=== PATIENT | female | born 2000 | race Caucasian/White ===

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

== ENCOUNTER → 2021-02-19 | Outpatient (CLI) | payer OTHER ==
[~2021-02-19] MED LIST: D-101000 PO; FLUO10CA16; HYDR-643; NORE1TAB73; OMEP20TA17
== END ==
LOC: M LABSMTC 09:51
PROVIDERS: ATTEND Anesthesiology
DX: Z01.812 Encounter for preprocedural laboratory examination (principal); Z20.822 Contact with and (suspected) exposure to COVID-19

== ENCOUNTER 2021-02-24 06:18 | Day surgery (SDC) | payer OTHER ==
[~2021-02-24] VITALS: Ht 160 cm; Wt 60.3 kg
[~2021-02-24 06:18] MED LIST changes: +LIDOCAINE 1% MDV 20ML VIAL SQ PRN; +LR 1,000 ML IV ONE; +ceFAZolin SOD 2 GM in IV 1 EA IV ONE
[2021-02-24] MEDS ORDERED: ceFAZolin 2 GM/D5W 50 ML IV BAG (J0690 PER 500MG) As Ordered ONE (06:39)
[2021-02-24] MEDS ORDERED: MIDAZOLAM INJ 2MG/2ML VIAL (J2250 PER 1MG) As Ordered ONE (06:53)
[2021-02-24] MEDS ORDERED: fentaNYL 100 MCG/2 ML INJECTION (J3010) As Ordered ONE (06:54)
[2021-02-24] MEDS ORDERED: propofoL 200 MG/20 ML VIAL As Ordered ONE (06:55)
[2021-02-24] MEDS ORDERED: LIDOCAINE 2% 100MG/5ML SDV (FOR ANES.) As Ordered ONE (06:56)
[2021-02-24] MEDS ORDERED: CLINDAMYCIN 600 MG in IV 1 EA IV ONE (07:15)
[2021-02-24] MEDS ORDERED: LIDOCAINE 1% SDV 30ML VIAL As Ordered ONE (07:15)
[2021-02-24] MEDS ORDERED: ePHEDrine SULFATE 25 MG/5 ML(5MG/ML) SYRINGE As Ordered ONE (07:54)
[2021-02-24] MEDS ORDERED: ONDANSETRON 4MG/2ML VIAL As Ordered ONE (07:55)
[2021-02-24] MEDS ORDERED: dexameTHASONE 4 MG/ML 1ML VIAL (J1100 PER 1MG) As Ordered ONE (07:55)
[2021-02-24] MEDS ORDERED: KETOROLAC 60MG 2ML VIAL As Ordered ONE (08:12)
--- NOTE | 2021-02-24 08:36 | ROOPDOC ---
[facility] Report Of Operation Report of Operation DATE OF PROCEDURE: 02/24/21 PREPROCEDURE DIAGNOSES: Right wrist ganglion cyst. POSTPROCEDURE DIAGNOSES: Same. PROCEDURE: Right wrist ganglion cyst excision. SURGEON: Dr. Jerald Tiwari MD SENIOR CONTROLLER: None, ANESTHESIA: Dr. Roldan. 2 mL 1% lidocaine and LMA anesthetic. ESTIMATED BLOOD LOSS: Approximately 3 mL. COMPLICATIONS: None. REMARKS: None. PROCEDURE NOTE: This 20-year-old female presented with a symptomatic right wrist dorsal ganglion cyst. She wishes to go ahead with excision. I reminded her of the pros and cons risks and benefits of going ahead with surgery. She wished to proceed. I marked the right upper extremity. She had no further questions.. DESCRIPTION OF PROCEDURE: The patient was brought to the operating room theater. They were placed supine on the operating room table. General anesthesia was induced. Clindamycin IV 600 mg was administered. Prior penicillin allergy. Arm table was used to the patient's right side. All bony prominences appropriately padded. Sequential devices placed on the legs. Tourniquet applied to the right upper extremity and appropriately padded. Size 18 inches. Bed turned to 90. Right upper extremity prepped with chlorhexidine preparatory solution. This was allowed to thoroughly dry over 3 minutes prior to draping. Preoperative timeout was performed to confirm the site patient and surgery. Began by elevating the limb and inflating the tourniquet to 250 mmHg. I planned my dorsal longitudinal incision over the site of the ganglion cyst. The incision was approximately 1 inch long. I used 2 mL 1% lidocaine in the subcutaneous tissues directly over the ganglion cyst site. Made the incision through skin and subcutaneous tissue to meticulous hemostasis. I identified the ganglion cyst. I used gentle blunt dissection around this. I achieved meticulous hemostasis. I identified the stalk. I protected the dorsal ligaments of the wrist. I excised the ganglion cyst in one section taking the stalk protecting the ligaments. Tourniquet was let down and wounds thoroughly irrigated. Cyst was sent to pathology. Subcutaneous tissues closed with interrupted 3-0 Vicryl sutures and skin with 3-0 Monocryl. Skin cleaned with wet and dry dressing. Steri-Strips applied. Adaptic 4 x 8 gauze and Daquan wrap was used to dress the wound. Patient was woken up from their anesthetic transferred off the operating room table and taken to postanesthetic care unit in stable condition. All sponge needle and instrument counts were correct. No complications. I attempted to contact the patient's father after the case, there was no answer to the phone number. Plan for the patient is to be discharged home when they are comfortable. Follow- up in the office in 2 weeks' time. Keep the incision clean and dry and change the dressing postoperative day 1, 2 and as needed. Start immediate range of motion of the hand wrist and elbow but avoid heavy lifting or gripping for the first 6 weeks after surgery. Prescription has been sent in electronically to the pharmacy of choice. Postoperative wound instructions were given. It was recommended to keep the wound clean and dry. Dressing changes as needed. It was reinforced with the patient that they should call us or be seen immediately for redness, drainage, or fever. Risk factors for harms from taking opioid medications discussed and assessed including but not limited to personal or family history of substance use disorder, anxiety or depression, , age 65 or older, COPD or other underlying respiratory conditions, and renal or hepatic insufficiency. Discussed with patient concerns and determined any harms they may experience or be currently experiencing such as nausea or constipation, feeling sedated or confused, breathing interruptions during sleep, or taking or craving more opioids than prescribed or difficulty controlling use (addiction). Discussed early warning signs of overdose including confusion, sedation, slurred speech, abnormal gait. JERALD TIWARI MD February 24, 2021 08:36
[2021-02-24] MEDS ORDERED: fentaNYL 100 MCG/2 ML INJECTION (J3010) IV PRN (08:40)
[2021-02-24] MEDS ORDERED: MORPHINE 2 MG/ML 1ML VIAL (J2270) IV PRN (08:40)
[2021-02-24] MEDS ORDERED: LR 1,000 ML IV SCH ×2 (08:40)
[2021-02-24] MEDS ORDERED: ONDANSETRON 4MG/2ML VIAL IV PRN ×2 (08:40→08:45)
[2021-02-24] MEDS ORDERED: PERCOCET 5MG/325MG TAB PO PRN ×2 (08:40→08:45)
[2021-02-24] MEDS ORDERED: ACETAMINOPHEN TAB 650MG DOSE (2X325MG) PO PRN (08:40)
[2021-02-24 09:00] VITALS: BP 151/103
== END 2021-02-24 09:34 | disposition home or self-care (01) ==
LOC: M SDC 06:18
PROVIDERS: ATTEND Orthopaedic Surgery Sports Medicine
DX: M67.431 Ganglion, right wrist (principal); R12 Heartburn; R03.0 Elevated blood-pressure reading, without diagnosis of hypertension; F41.9 Anxiety disorder, unspecified; F32.9 Major depressive disorder, single episode, unspecified; G43.909 Migraine, unspecified, not intractable, without status migrainosus; F17.220 Nicotine dependence, chewing tobacco, uncomplicated; Z88.0 Allergy status to penicillin; Z79.899 Other long term (current) drug therapy; Z79.3 Long term (current) use of hormonal contraceptives
CPT/HCPCS: 25111; 81025; 88304; J1100; J1885; J2250; J2405; J3010

== ENCOUNTER → 2021-07-07 | Outpatient (CLI) | payer OTHER ==
[~2021-07-07] MED LIST changes: -LIDOCAINE 1% MDV 20ML VIAL SQ PRN; -LR 1,000 ML IV ONE; -ceFAZolin SOD 2 GM in IV 1 EA IV ONE
[2021-07-07 16:12] LABS: BASO % 0.2 % (0.0-1.0); EOS # 0.1 10^3/uL (0.0-0.5); EOS % 0.8 % (0.0-3.0); HEMATOCRIT 40.9 % (36.0-47.0); HEMOGLOBIN 13.3 g/dl (12.0-15.5); LYMPH # 1.8 10^3/uL (1.5-5.0); LYMPH % 21.4 % (24.0-44.0); MEAN CORPUSCULAR HEMOGLOBIN 27.8 pg (27.0-33.0); MEAN CORPUSCULAR HGB CONC 32.5 g/dl (32.0-36.5); MEAN CORPUSCULAR VOLUME 85.4 fl (80.0-96.0); MONO # 0.5 10^3/uL (0.0-0.8); MONO % 6.1 % (2.0-8.0); NEUTROPHILS % 71.4 % (36.0-66.0); PLATELET COUNT, AUTOMATED 324 10^3/uL (150-450); RED BLOOD COUNT 4.79 10^6/uL (4.00-5.40); WHITE BLOOD COUNT 8.5 10^3/uL (4.0-10.0)
[2021-07-07 17:51] LABS: ALBUMIN 3.6 GM/DL (3.2-5.2); ALT/SGPT 13 U/L (12-78); BILIRUBIN,TOTAL 0.7 MG/DL (0.2-1.0); BLOOD UREA NITROGEN 9 MG/DL (7-18); CALCIUM LEVEL 9.3 MG/DL (8.5-10.1); CARBON DIOXIDE LEVEL 25 MEQ/L (21-32); CHLORIDE LEVEL 106 MEQ/L (98-107); CREATININE FOR GFR 0.78 MG/DL (0.55-1.30); FERRITIN 9 NG/ML (8-252); GLUCOSE, FASTING 81 MG/DL (70-100); IRON (FE) 120 UG/DL (50-170); PERCENT SATURATION 19.8 % (13.2-45.0); POTASSIUM SERUM 4.1 MEQ/L (3.5-5.1); SODIUM LEVEL 138 MEQ/L (136-145); TOTAL IRON BINDING CAPACITY 607 UG/DL (250-450); TOTAL PROTEIN 7.7 GM/DL (6.4-8.2)
[2021-07-07 17:59] LABS: TOTAL 25(OH) VITAMIN D 38.7 NG/ML (30.0-100.0)
== END ==
LOC: M WUC 11:44
PROVIDERS: ATTEND Physician Assistant
DX: D50.9 Iron deficiency anemia, unspecified (principal); F41.1 Generalized anxiety disorder; E55.9 Vitamin D deficiency, unspecified

== ENCOUNTER → 2021-08-24 | Outpatient (REF) | payer OTHER ==
[~2021-08-24] MED LIST changes: -FLUO10CA16; +FLUO10CA18
== END ==
LOC: M LAB REF 13:55
PROVIDERS: ATTEND Physician Assistant
DX: D28.0 Benign neoplasm of vulva (principal)

== ENCOUNTER → 2021-08-25 | Outpatient (REF) | payer OTHER ==
[~2021-08-25] MED LIST changes: +FLUO10CA16; -FLUO10CA18
[2021-08-25 16:23] LABS: APPEARANCE, URINE TURBID (CLEAR); BACTERIA, URINE AUTO NEGATIVE (NEGATIVE); BILIRUBIN, URINE AUTO NEGATIVE (NEGATIVE); BLOOD, URINE BLOOD 1+ (NEGATIVE); COLOR, URINE AMBER (YELLOW); GLUCOSE, URINE (UA) AUTO NEGATIVE (NEGATIVE); KETONE, URINE AUTO NEGATIVE (NEGATIVE); LEUKOCYTE ESTERASE, URINE AUTO 3+ (NEGATIVE); MUCUS, URINE LARGE (NEGATIVE); NITRITE, URINE AUTO NEGATIVE (NEGATIVE); PROTEIN, URINE AUTO 1+ mg/dL (NEGATIVE); RBC, URINE AUTO 5 /HPF (0-3); SPECIFIC GRAVITY URINE AUTO 1.028 (1.002-1.035); SQUAMOUS EPITHELIAL CELL UR AU 55 /HPF (0-6); UROBILINOGEN, URINE AUTO 0.2 mg/dL (0.0-2.0); WBC, URINE AUTO 86 /HPF (0-3)
[2021-08-25 16:26] LABS: BASO % 0.3 % (0.0-1.0); EOS % 0.4 % (0.0-3.0); HEMATOCRIT 38.4 % (36.0-47.0); HEMOGLOBIN 12.7 g/dl (12.0-15.5); LYMPH # 2.2 10^3/uL (1.5-5.0); LYMPH % 28.2 % (24.0-44.0); MEAN CORPUSCULAR HEMOGLOBIN 27.4 pg (27.0-33.0); MEAN CORPUSCULAR HGB CONC 33.1 g/dl (32.0-36.5); MEAN CORPUSCULAR VOLUME 82.9 fl (80.0-96.0); MONO # 0.5 10^3/uL (0.0-0.8); MONO % 5.9 % (2.0-8.0); NEUTROPHILS # 5.1 10^3/uL (1.5-8.5); NEUTROPHILS % 65.1 % (36.0-66.0); PLATELET COUNT, AUTOMATED 316 10^3/uL (150-450); RED BLOOD COUNT 4.63 10^6/uL (4.00-5.40); WHITE BLOOD COUNT 7.9 10^3/uL (4.0-10.0)
[2021-08-25 17:04] LABS: ALBUMIN 3.7 GM/DL (3.2-5.2); ALT/SGPT 15 U/L (12-78); BILIRUBIN,TOTAL 0.6 MG/DL (0.2-1.0); BLOOD UREA NITROGEN 12 MG/DL (7-18); CALCIUM LEVEL 8.6 MG/DL (8.5-10.1); CARBON DIOXIDE LEVEL 23 MEQ/L (21-32); CHLORIDE LEVEL 106 MEQ/L (98-107); CREATININE FOR GFR 0.78 MG/DL (0.55-1.30); FERRITIN 27 NG/ML (8-252); FREE T4 1.06 NG/DL (0.78-1.33); GLUCOSE, FASTING 88 MG/DL (70-100); IRON (FE) 105 UG/DL (50-170); PERCENT SATURATION 18.8 % (13.2-45.0); POTASSIUM SERUM 3.9 MEQ/L (3.5-5.1); SODIUM LEVEL 138 MEQ/L (136-145); TOTAL IRON BINDING CAPACITY 558 UG/DL (250-450); TOTAL PROTEIN 7.4 GM/DL (6.4-8.2); VITAMIN B12 LEVEL 277 PG/ML
[2021-08-25 17:06] LABS: HCG, SERUM QUALITATIVE NEGATIVE (NEGATIVE)
[2021-08-25 17:43] LABS: HEPATITIS C VIRUS ABY INDEX 0.1 INDEX (<0.8)
[2021-08-25 17:44] LABS: HIV 1&2 SCREEN CENTAUR NEGATIVE (NEGATIVE)
== END ==
LOC: M SFHCCAPE 07:34
PROVIDERS: ATTEND Physician Assistant
DX: F41.1 Generalized anxiety disorder (principal); D50.9 Iron deficiency anemia, unspecified; E55.9 Vitamin D deficiency, unspecified; R53.82 Chronic fatigue, unspecified

== ENCOUNTER → 2021-09-08 | Outpatient (REF) | payer OTHER ==
[~2021-09-08] MED LIST changes: -FLUO10CA16; +FLUO10CA18
[2021-09-09 16:17] LABS: APPEARANCE, URINE HAZY (CLEAR); BACTERIA, URINE AUTO NEGATIVE (NEGATIVE); BILIRUBIN, URINE AUTO NEGATIVE (NEGATIVE); BLOOD, URINE BLOOD 3+ (NEGATIVE); CALCIUM OXALATE CRYSTALS SMALL; COLOR, URINE YELLOW (YELLOW); GLUCOSE, URINE (UA) AUTO NEGATIVE (NEGATIVE); KETONE, URINE AUTO NEGATIVE (NEGATIVE); LEUKOCYTE ESTERASE, URINE AUTO NEGATIVE (NEGATIVE); MUCUS, URINE SMALL (NEGATIVE); NITRITE, URINE AUTO NEGATIVE (NEGATIVE); PROTEIN, URINE AUTO 1+ mg/dL (NEGATIVE); RBC, URINE AUTO 3 /HPF (0-3); SPECIFIC GRAVITY URINE AUTO 1.024 (1.002-1.035); SQUAMOUS EPITHELIAL CELL UR AU 3 /HPF (0-6); UROBILINOGEN, URINE AUTO 0.2 mg/dL (0.0-2.0); WBC, URINE AUTO 8 /HPF (0-3)
== END ==
LOC: M SFHCCAPE 14:48
PROVIDERS: ATTEND Physician Assistant
DX: R82.90 Unspecified abnormal findings in urine (principal)

== ENCOUNTER → 2021-10-06 | Outpatient (REF) | payer OTHER ==
[~2021-10-06] MED LIST changes: +FLUO10CA16; -FLUO10CA18
== END ==
LOC: M SFHCCAPE 14:11
PROVIDERS: ATTEND Physician Assistant
DX: J01.00 Acute maxillary sinusitis, unspecified (principal)

== ENCOUNTER → 2022-01-11 | Outpatient (REF) | payer OTHER ==
[~2022-01-11] MED LIST changes: -FLUO10CA16; +FLUO10CA18
== END ==
LOC: M SFHCCAPE 08:45
PROVIDERS: ATTEND Physician Assistant
DX: L08.9 Local infection of the skin and subcutaneous tissue, unspecified (principal)

== ENCOUNTER → 2022-01-11 | Outpatient (REF) | payer OTHER | LOC: M SFHCCAPE 15:50 | PROVIDERS: ATTEND Physician Assistant | DX: L08.9 Local infection of the skin and subcutaneous tissue, unspecified (principal) ==

== ENCOUNTER → 2022-03-29 | Outpatient (REF) | payer OTHER | LOC: M SFHCCAPE 14:27 | PROVIDERS: ATTEND Physician Assistant | DX: J22 Unspecified acute lower respiratory infection (principal) ==

== ENCOUNTER → 2022-11-01 | Outpatient (REF) | payer OTHER | LOC: M SFHCDERM 14:14 | PROVIDERS: ATTEND Physician Assistant | DX: D23.30 Other benign neoplasm of skin of unspecified part of face (principal) ==

== ENCOUNTER → 2022-11-08 | Outpatient (REF) | payer OTHER ==
[2022-11-08 17:06] LABS: BASO % 0.4 % (0.0-1.0); EOS % 0.8 % (0.0-3.0); HEMATOCRIT 41.6 % (36.0-47.0); HEMOGLOBIN 13.4 g/dl (12.0-15.5); LYMPH # 1.5 10^3/uL (1.5-5.0); LYMPH % 31.4 % (24.0-44.0); MEAN CORPUSCULAR HEMOGLOBIN 27.1 pg (27.0-33.0); MEAN CORPUSCULAR HGB CONC 32.2 g/dl (32.0-36.5); MONO # 0.3 10^3/uL (0.0-0.8); MONO % 6.4 % (2.0-8.0); NEUTROPHILS % 60.8 % (36.0-66.0); PLATELET COUNT, AUTOMATED 299 10^3/uL (150-450); RED BLOOD COUNT 4.95 10^6/uL (4.00-5.40); WHITE BLOOD COUNT 4.9 10^3/uL (4.0-10.0)
[2022-11-08 17:54] LABS: ALBUMIN 3.8 G/DL (3.2-5.2); ALKALINE PHOSPHATASE 88 U/L (46-116); ALT/SGPT < 9 U/L (7.0-40); AST/SGOT 18 U/L (<34); BILIRUBIN,TOTAL 0.7 MG/DL (0.3-1.2); BLOOD UREA NITROGEN 10 MG/DL (9-23); CALCIUM LEVEL 9.1 MG/DL (8.5-10.1); CARBON DIOXIDE LEVEL 24 MMOL/L (20-31); CHLORIDE LEVEL 103 MMOL/L (98-107); CHOLESTEROL LEVEL 238 MG/DL (<200); CHOLESTEROL RISK RATIO 2.81 (<5); CREATININE FOR GFR 0.71 MG/DL (0.55-1.30); FOLATE 14.78 NG/ML (>5.4); GLOMERULAR FILTRATION RATE > 60.0 (>60); GLUCOSE, FASTING 83 MG/DL (60-100); HDL CHOLESTEROL 84.5 MG/DL (>40); IRON (FE) 41 UG/DL (50-170); LDL CHOLESTEROL 137.7 MG/DL (<100); NON-HDL-C 154 MG/DL; PERCENT SATURATION 8.4 % (13.2-45.0); POTASSIUM SERUM 4.1 MMOL/L (3.5-5.1); SODIUM LEVEL 137 MMOL/L (136-145); THYROID STIMULATING HORMONE 1.536 uIU/ML (0.55-4.78); TOTAL 25(OH) VITAMIN D 28.3 NG/ML (20.0-100.0); TOTAL IRON BINDING CAPACITY 488 UG/DL (250-425); TOTAL PROTEIN 7.4 G/DL (5.7-8.2); TRIGLYCERIDES LEVEL 79 MG/DL (<150); VITAMIN B12 LEVEL 295 PG/ML (211-911)
== END ==
LOC: M SFHCCAPE 07:40
PROVIDERS: ATTEND Physician Assistant
DX: F41.1 Generalized anxiety disorder (principal); E55.9 Vitamin D deficiency, unspecified

== ENCOUNTER → 2023-02-08 | Outpatient (REF) | payer OTHER ==
[2023-02-08 18:07] LABS: BASO % 0.4 % (0.0-1.0); EOS % 0.8 % (0.0-3.0); HEMATOCRIT 41.2 % (36.0-47.0); HEMOGLOBIN 13.2 g/dl (12.0-15.5); LYMPH # 1.7 10^3/uL (1.5-5.0); LYMPH % 35.4 % (24.0-44.0); MEAN CORPUSCULAR HEMOGLOBIN 28.1 pg (27.0-33.0); MEAN CORPUSCULAR VOLUME 87.8 fl (80.0-96.0); MONO # 0.4 10^3/uL (0.0-0.8); MONO % 7.8 % (2.0-8.0); NEUTROPHILS # 2.7 10^3/uL (1.5-8.5); NEUTROPHILS % 55.4 % (36.0-66.0); PLATELET COUNT, AUTOMATED 301 10^3/uL (150-450); RED BLOOD COUNT 4.69 10^6/uL (4.00-5.40); WHITE BLOOD COUNT 4.9 10^3/uL (4.0-10.0)
[2023-02-08 18:16] LABS: PERCENT SATURATION 9.6 % (13.2-45.0)
[2023-02-08 18:18] LABS: FERRITIN 14.1 NG/ML (7.3-270.7); TOTAL 25(OH) VITAMIN D 33.2 NG/ML (20.0-100.0)
== END ==
LOC: M SFHCCAPE 08:45
PROVIDERS: ATTEND Physician Assistant
DX: D50.9 Iron deficiency anemia, unspecified (principal); E55.9 Vitamin D deficiency, unspecified

== ENCOUNTER → 2023-04-27 | Outpatient (REF) | payer OTHER ==
[2023-04-27 18:46] LABS: THYROID STIMULATING HORMONE 2.418 uIU/ML (0.55-4.78)
== END ==
LOC: M LAB REF 17:22
PROVIDERS: ATTEND Internal Medicine Cardiovascular Disease
DX: R03.0 Elevated blood-pressure reading, without diagnosis of hypertension (principal)

== ENCOUNTER → 2023-05-18 | Outpatient (CLI) | payer OTHER | LOC: M RAD 08:42 | PROVIDERS: ATTEND Internal Medicine Cardiovascular Disease | DX: R03.0 Elevated blood-pressure reading, without diagnosis of hypertension (principal) ==

== ENCOUNTER → 2023-06-16 | Outpatient (CLI) | payer OTHER | LOC: M CARPUL 08:27 | PROVIDERS: ATTEND Internal Medicine Cardiovascular Disease | DX: R03.0 Elevated blood-pressure reading, without diagnosis of hypertension (principal) ==

== ENCOUNTER → 2023-11-06 | Outpatient (REF) | payer OTHER ==
[2023-11-06 17:37] LABS: BASO % 0.4 % (0.0-1.0); EOS % 0.5 % (0.0-3.0); HEMATOCRIT 41.6 % (36.0-47.0); HEMOGLOBIN 13.7 g/dl (12.0-15.5); LYMPH # 1.6 10^3/uL (1.5-5.0); LYMPH % 20.6 % (24.0-44.0); MEAN CORPUSCULAR HEMOGLOBIN 29.1 pg (27.0-33.0); MEAN CORPUSCULAR HGB CONC 32.9 g/dl (32.0-36.5); MEAN CORPUSCULAR VOLUME 88.5 fl (80.0-96.0); MONO # 0.4 10^3/uL (0.0-0.8); MONO % 5.8 % (2.0-8.0); NEUTROPHILS # 5.5 10^3/uL (1.5-8.5); NEUTROPHILS % 72.4 % (36.0-66.0); PLATELET COUNT, AUTOMATED 309 10^3/uL (150-450); WHITE BLOOD COUNT 7.6 10^3/uL (4.0-10.0)
[2023-11-06 18:01] LABS: ALBUMIN 4.1 G/DL (3.2-5.2); ALKALINE PHOSPHATASE 99 U/L (46-116); ALT/SGPT 18 U/L (7.0-40); AST/SGOT 16 U/L (<34); BILIRUBIN,TOTAL 1.2 MG/DL (0.3-1.2); BLOOD UREA NITROGEN 9 MG/DL (9-23); CALCIUM LEVEL 9.1 MG/DL (8.5-10.1); CARBON DIOXIDE LEVEL 26 MMOL/L (20-31); CHLORIDE LEVEL 104 MMOL/L (98-107); GLOMERULAR FILTRATION RATE > 60.0 (>60); GLUCOSE, FASTING 76 MG/DL (60-100); IRON (FE) 79 UG/DL (50-170); PERCENT SATURATION 18.2 % (13.2-45.0); POTASSIUM SERUM 4.3 MMOL/L (3.5-5.1); SODIUM LEVEL 136 MMOL/L (136-145); TOTAL IRON BINDING CAPACITY 435 UG/DL (250-425); TOTAL PROTEIN 7.3 G/DL (5.7-8.2)
[2023-11-06 18:03] LABS: TOTAL 25(OH) VITAMIN D 23.2 NG/ML (20.0-100.0)
[2023-11-06 18:04] LABS: FERRITIN 12.2 NG/ML (7.3-270.7)
== END ==
LOC: M SFHCCAPE 13:45
PROVIDERS: ATTEND Physician Assistant Medical
DX: J02.9 Acute pharyngitis, unspecified (principal); D50.9 Iron deficiency anemia, unspecified; E55.9 Vitamin D deficiency, unspecified

== ENCOUNTER → 2023-12-04 | Outpatient (REF) | payer OTHER ==
[2023-12-04 17:29] LABS: FREE T4 1.12 NG/DL (0.89-1.76)
[2023-12-04 17:30] LABS: CORTISOL AM 20.2 UG/DL (4.3-22.4); THYROID STIMULATING HORMONE 1.318 uIU/ML (0.55-4.78)
== END ==
LOC: M SFHCCAPE 07:53
PROVIDERS: ATTEND Physician Assistant Medical
DX: F41.1 Generalized anxiety disorder (principal); N93.8 Other specified abnormal uterine and vaginal bleeding; I10 Essential (primary) hypertension

== ENCOUNTER → 2024-02-08 | Outpatient (REF) | payer OTHER ==
[~2024-02-08] MED LIST changes: +FLUO-290; -FLUO10CA18
== END ==
LOC: M SFHCCAPE 14:18
PROVIDERS: ATTEND Physician Assistant Medical
DX: R10.31 Right lower quadrant pain (principal)

== ENCOUNTER → 2024-03-01 | Outpatient (CLI) | payer OTHER | LOC: M WHC 14:56 | PROVIDERS: ATTEND Physician Assistant Medical | DX: R10.31 Right lower quadrant pain (principal) ==

== ENCOUNTER → 2024-04-25 | Outpatient (REF) | payer OTHER | LOC: M LAB REF 17:15 | PROVIDERS: ATTEND Surgery | DX: D22.71 Melanocytic nevi of right lower limb, including hip (principal) ==

== ENCOUNTER 2024-05-31 07:26 | Emergency (ER) | payer OTHER ==
[~2024-05-31] VITALS: Ht 160 cm; Wt 60.7 kg
[2024-05-31] MEDS: PROPRANOLOL 10 MG TAB PO ONE (10:07)
[2024-05-31] MEDS: ONDANSETRON 4MG 2ML VIAL IV ONE (10:07)
[2024-05-31] MEDS: NS 1,000 ML IV ONE (10:08)
[2024-05-31 10:15] LABS: BASO % 0.1 % (0.0-1.0); HEMATOCRIT 39.1 % (36.0-47.0); HEMOGLOBIN 13.4 g/dl (12.0-15.5); LYMPH # 0.4 10^3/uL (1.5-5.0); LYMPH % 3.5 % (24.0-44.0); MEAN CORPUSCULAR HEMOGLOBIN 29.5 pg (27.0-33.0); MEAN CORPUSCULAR HGB CONC 34.3 g/dl (32.0-36.5); MEAN CORPUSCULAR VOLUME 86.1 fl (80.0-96.0); MONO # 0.6 10^3/uL (0.0-0.8); MONO % 6.3 % (2.0-8.0); NEUTROPHILS # 9.1 10^3/uL (1.5-8.5); NEUTROPHILS % 89.4 % (36.0-66.0); PLATELET COUNT, AUTOMATED 266 10^3/uL (150-450); RED BLOOD COUNT 4.54 10^6/uL (4.00-5.40); WHITE BLOOD COUNT 10.2 10^3/uL (4.0-10.0)
[2024-05-31 10:39] LABS: LIPASE 31 U/L (12-53)
[2024-05-31 10:42] LABS: ALBUMIN 4.3 G/DL (3.2-5.2); ALKALINE PHOSPHATASE 106 U/L (46-116); ALT/SGPT 18 U/L (7.0-40); AST/SGOT 11 U/L (<34); BILIRUBIN,DIRECT 0.3 MG/DL (<0.4); BILIRUBIN,TOTAL 1.1 MG/DL (0.3-1.2); BLOOD UREA NITROGEN 9 MG/DL (9-23); CALCIUM LEVEL 9.6 MG/DL (8.5-10.1); CARBON DIOXIDE LEVEL 24 MMOL/L (20-31); CHLORIDE LEVEL 105 MMOL/L (98-107); CREATININE FOR GFR 0.64 MG/DL (0.55-1.30); GLOMERULAR FILTRATION RATE > 60.0 (>60); GLUCOSE, FASTING 114 MG/DL (60-100); POTASSIUM SERUM 3.5 MMOL/L (3.5-5.1); SODIUM LEVEL 136 MMOL/L (136-145)
[2024-05-31 11:22] LABS: HCG, SERUM QUALITATIVE NEGATIVE (NEGATIVE)
[2024-05-31 12:15] VITALS: BP 132/84; TEMP 98.2; O2SAT 100
== END 2024-05-31 12:31 | disposition home or self-care (01) ==
LOC: M ED 07:26
DX: U07.1 COVID-19 (principal); R00.0 Tachycardia, unspecified; I10 Essential (primary) hypertension; F17.290 Nicotine dependence, other tobacco product, uncomplicated; Z88.0 Allergy status to penicillin; Z88.8 Allergy status to other drugs, medicaments and biological substances; Z91.048 Other nonmedicinal substance allergy status; Z79.899 Other long term (current) drug therapy
CPT/HCPCS: 71046; 80048; 80076; 83690; 84703; 85025; 93005; 93041; 94760; 96361; 96374; 99284; J2405

== ENCOUNTER → 2024-07-17 | Outpatient (REF) | payer OTHER ==
[2024-07-17 19:06] LABS: BASO % 0.6 % (0.0-1.0); EOS # 0.1 10^3/uL (0.0-0.5); EOS % 1.5 % (0.0-3.0); HEMATOCRIT 39.9 % (36.0-47.0); HEMOGLOBIN 12.9 g/dl (12.0-15.5); LYMPH # 1.5 10^3/uL (1.5-5.0); LYMPH % 28.4 % (24.0-44.0); MEAN CORPUSCULAR HEMOGLOBIN 28.5 pg (27.0-33.0); MEAN CORPUSCULAR HGB CONC 32.3 g/dl (32.0-36.5); MEAN CORPUSCULAR VOLUME 88.3 fl (80.0-96.0); MONO # 0.5 10^3/uL (0.0-0.8); MONO % 8.7 % (2.0-8.0); NEUTROPHILS # 3.3 10^3/uL (1.5-8.5); NEUTROPHILS % 60.1 % (36.0-66.0); PLATELET COUNT, AUTOMATED 389 10^3/uL (150-450); RED BLOOD COUNT 4.52 10^6/uL (4.00-5.40); WHITE BLOOD COUNT 5.4 10^3/uL (4.0-10.0)
[2024-07-17 19:34] LABS: LIPASE 37 U/L (12-53)
[2024-07-17 19:35] LABS: IRON (FE) 63 UG/DL (50-170)
[2024-07-17 19:36] LABS: ALBUMIN 4.1 G/DL (3.2-5.2); ALKALINE PHOSPHATASE 117 U/L (46-116); ALT/SGPT 17 U/L (7.0-40); AST/SGOT 10 U/L (<34); BILIRUBIN,TOTAL 0.9 MG/DL (0.3-1.2); BLOOD UREA NITROGEN 12 MG/DL (9-23); CALCIUM LEVEL 9.8 MG/DL (8.5-10.1); CARBON DIOXIDE LEVEL 28 MMOL/L (20-31); CHLORIDE LEVEL 105 MMOL/L (98-107); CREATININE FOR GFR 0.66 MG/DL (0.55-1.30); FERRITIN 18.1 NG/ML (7.3-270.7); GLOMERULAR FILTRATION RATE > 60.0 (>60); GLUCOSE, FASTING 84 MG/DL (60-100); PERCENT SATURATION 15.1 % (13.2-45.0); POTASSIUM SERUM 4.5 MMOL/L (3.5-5.1); SODIUM LEVEL 136 MMOL/L (136-145); TOTAL IRON BINDING CAPACITY 416 UG/DL (250-425); TOTAL PROTEIN 7.6 G/DL (5.7-8.2); VITAMIN B12 LEVEL 461 PG/ML (211-911)
== END ==
LOC: M SFHCCAPE 14:14
PROVIDERS: ATTEND Physician Assistant Medical
DX: D50.9 Iron deficiency anemia, unspecified (principal); R19.7 Diarrhea, unspecified

== ENCOUNTER → 2024-07-18 | Outpatient (REF) | payer OTHER ==
[2024-07-18 13:27] LABS: AMORPHOUS SEDIMENT SMALL (NEGATIVE); APPEARANCE, URINE TURBID (CLEAR); BACTERIA, URINE AUTO NEGATIVE (NEGATIVE); BILIRUBIN, URINE AUTO NEGATIVE (NEGATIVE); BLOOD, URINE BLOOD 2+ (NEGATIVE); COLOR, URINE YELLOW (YELLOW); GLUCOSE, URINE (UA) AUTO NEGATIVE (NEGATIVE); KETONE, URINE AUTO NEGATIVE (NEGATIVE); LEUKOCYTE ESTERASE, URINE AUTO NEGATIVE (NEGATIVE); NITRITE, URINE AUTO NEGATIVE (NEGATIVE); PROTEIN, URINE AUTO NEGATIVE (NEGATIVE); RBC, URINE AUTO 0 /HPF (0-3); SPECIFIC GRAVITY URINE AUTO 1.025 (1.002-1.035); SQUAMOUS EPITHELIAL CELL UR AU 12 /HPF (0-6); UROBILINOGEN, URINE AUTO 0.2 mg/dL (0.0-2.0); WBC, URINE AUTO 0 /HPF (0-3)
== END ==
LOC: M SMT 12:39
PROVIDERS: ATTEND Nurse Practitioner Family
DX: N30.20 Other chronic cystitis without hematuria (principal)

== ENCOUNTER → 2024-07-25 | Outpatient (CLI) | payer OTHER ==
[2024-07-25 10:49] LABS: HEMOGLOBIN A1c 4.8 % (4.0-6.0)
[2024-07-27 01:43] LABS: DEHYDROEPIANDROSTERONE SULFATE 146 mcg/dL (14-349)
[2024-07-29 14:28] LABS: FACTOR VIII AG (VON WILLEBRAN) 90 % (50-217)
== END ==
LOC: M PLALAB 08:10
PROVIDERS: ATTEND Nurse Practitioner Family
DX: N92.0 Excessive and frequent menstruation with regular cycle (principal)

== ENCOUNTER 2024-08-15 08:43 | Day surgery (SDC) | payer OTHER ==
[~2024-08-15] VITALS: Ht 160 cm; Wt 62.0 kg
[~2024-08-15 08:43] MED LIST changes: +FLUO10TA30 PO; +FLUO20TA28 PO; +LINZ145C PO; +NS 250 ML IV ONE; +PROP10TA56 PO
[2024-08-15 09:45] VITALS: TEMP 97.6
[2024-08-15 10:06] VITALS: BP 114/60; O2SAT 100
== END 2024-08-15 10:14 | disposition home or self-care (01) ==
LOC: M OPP 08:43
PROVIDERS: ATTEND Internal Medicine Gastroenterology
DX: K92.1 Melena (principal); K58.1 Irritable bowel syndrome with constipation; K64.8 Other hemorrhoids; K21.9 Gastro-esophageal reflux disease without esophagitis; I10 Essential (primary) hypertension; Z79.899 Other long term (current) drug therapy; Z90.89 Acquired absence of other organs; F17.290 Nicotine dependence, other tobacco product, uncomplicated; Z88.0 Allergy status to penicillin; Z91.048 Other nonmedicinal substance allergy status; Z88.8 Allergy status to other drugs, medicaments and biological substances; Z91.040 Latex allergy status

== ENCOUNTER → 2025-05-07 | Outpatient (CLI) | payer OTHER ==
[~2025-05-07] MED LIST changes: -FLUO10TA30 PO; +FLUO1TAB2 PO; +FLUO1TAB4 PO; -FLUO20TA28 PO; -NS 250 ML IV ONE
== END ==
LOC: M CLY 15:02
PROVIDERS: ATTEND Physician Assistant Medical
DX: M79.642 Pain in left hand (principal); M25.532 Pain in left wrist

== ENCOUNTER → 2025-05-09 | Outpatient (REF) | payer OTHER ==
[2025-05-09 12:07] LABS: URINE PREG TEST NEGATIVE (NEGATIVE)
[2025-05-09 12:09] LABS: APPEARANCE, URINE HAZY (CLEAR); BACTERIA, URINE AUTO 1+ (NEGATIVE); BILIRUBIN, URINE AUTO NEGATIVE (NEGATIVE); BLOOD, URINE BLOOD 1+ (NEGATIVE); GLUCOSE, URINE (UA) AUTO NEGATIVE (NEGATIVE); KETONE, URINE AUTO NEGATIVE (NEGATIVE); LEUKOCYTE ESTERASE, URINE AUTO 1+ (NEGATIVE); NITRITE, URINE AUTO NEGATIVE (NEGATIVE); PROTEIN, URINE AUTO NEGATIVE (NEGATIVE); RBC, URINE AUTO 18 /HPF (0-3); SPECIFIC GRAVITY URINE AUTO 1.012 (1.002-1.035); SQUAMOUS EPITHELIAL CELL UR AU 1 /HPF (0-6); UROBILINOGEN, URINE AUTO 0.2 mg/dL (0.0-2.0); WBC, URINE AUTO 69 /HPF (0-3)
== END ==
LOC: EEVIPCON 11:32 → M LAB REF 11:32
PROVIDERS: ATTEND Physician Assistant
DX: N39.0 Urinary tract infection, site not specified (principal)

== ENCOUNTER → 2025-07-03 | Outpatient (REF) | payer SELFPAY ==
[2025-07-03 18:10] LABS: APPEARANCE, URINE HAZY (CLEAR); BACTERIA, URINE AUTO NEGATIVE (NEGATIVE); BILIRUBIN, URINE AUTO NEGATIVE (NEGATIVE); BLOOD, URINE BLOOD 1+ (NEGATIVE); GLUCOSE, URINE (UA) AUTO NEGATIVE (NEGATIVE); KETONE, URINE AUTO NEGATIVE (NEGATIVE); LEUKOCYTE ESTERASE, URINE AUTO 2+ (NEGATIVE); MUCUS, URINE SMALL (NEGATIVE); NITRITE, URINE AUTO NEGATIVE (NEGATIVE); PROTEIN, URINE AUTO NEGATIVE (NEGATIVE); RBC, URINE AUTO 4 /HPF (0-3); SPECIFIC GRAVITY URINE AUTO 1.017 (1.002-1.035); SQUAMOUS EPITHELIAL CELL UR AU 6 /HPF (0-6); UROBILINOGEN, URINE AUTO 0.2 mg/dL (0.0-2.0); WBC, URINE AUTO 5 /HPF (0-3)
== END ==
LOC: M SFHCCAPE 10:44
PROVIDERS: ATTEND Physician Assistant Medical
DX: N30.90 Cystitis, unspecified without hematuria (principal)

== ENCOUNTER → 2025-07-11 | Outpatient (REF) | payer OTHER, SELFPAY ==
[2025-07-11 15:57] LABS: APPEARANCE, URINE CLEAR (CLEAR); BACTERIA, URINE AUTO NEGATIVE (NEGATIVE); BILIRUBIN, URINE AUTO NEGATIVE (NEGATIVE); BLOOD, URINE BLOOD 2+ (NEGATIVE); GLUCOSE, URINE (UA) AUTO NEGATIVE (NEGATIVE); KETONE, URINE AUTO NEGATIVE (NEGATIVE); LEUKOCYTE ESTERASE, URINE AUTO NEGATIVE (NEGATIVE); MUCUS, URINE SMALL (NEGATIVE); NITRITE, URINE AUTO NEGATIVE (NEGATIVE); PROTEIN, URINE AUTO NEGATIVE (NEGATIVE); RBC, URINE AUTO 33 /HPF (0-3); SPECIFIC GRAVITY URINE AUTO 1.009 (1.002-1.035); SQUAMOUS EPITHELIAL CELL UR AU 1 /HPF (0-6); UROBILINOGEN, URINE AUTO 0.2 mg/dL (0.0-2.0); WBC, URINE AUTO 0 /HPF (0-3)
== END ==
LOC: M LABSMT 11:17
PROVIDERS: ATTEND Physician Assistant
DX: R39.9 Unspecified symptoms and signs involving the genitourinary system (principal)

== ENCOUNTER → 2025-07-23 | Outpatient (CLI) | payer OTHER | LOC: M RAD 16:59 | PROVIDERS: ATTEND Physician Assistant | DX: R31.21 Asymptomatic microscopic hematuria (principal); N83.8 Other noninflammatory disorders of ovary, fallopian tube and broad ligament ==

== ENCOUNTER → 2025-07-29 | Outpatient (REF) | payer OTHER ==
[2025-07-29 17:58] LABS: APPEARANCE, URINE CLEAR (CLEAR); BACTERIA, URINE AUTO NEGATIVE (NEGATIVE); BILIRUBIN, URINE AUTO NEGATIVE (NEGATIVE); BLOOD, URINE BLOOD NEGATIVE (NEGATIVE); GLUCOSE, URINE (UA) AUTO NEGATIVE (NEGATIVE); KETONE, URINE AUTO NEGATIVE (NEGATIVE); LEUKOCYTE ESTERASE, URINE AUTO 1+ (NEGATIVE); NITRITE, URINE AUTO NEGATIVE (NEGATIVE); PROTEIN, URINE AUTO NEGATIVE (NEGATIVE); RBC, URINE AUTO 1 /HPF (0-3); SPECIFIC GRAVITY URINE AUTO 1.005 (1.002-1.035); SQUAMOUS EPITHELIAL CELL UR AU 1 /HPF (0-6); UROBILINOGEN, URINE AUTO 0.2 mg/dL (0.0-2.0); WBC, URINE AUTO 0 /HPF (0-3)
== END ==
LOC: M SMT 17:23
PROVIDERS: ATTEND Physician Assistant
DX: R31.21 Asymptomatic microscopic hematuria (principal)

== ENCOUNTER → 2025-08-04 | Outpatient (REF) | payer OTHER ==
[2025-08-04 18:28] LABS: APPEARANCE, URINE HAZY (CLEAR); BACTERIA, URINE AUTO NEGATIVE (NEGATIVE); BILIRUBIN, URINE AUTO NEGATIVE (NEGATIVE); BLOOD, URINE BLOOD 1+ (NEGATIVE); GLUCOSE, URINE (UA) AUTO NEGATIVE (NEGATIVE); KETONE, URINE AUTO NEGATIVE (NEGATIVE); LEUKOCYTE ESTERASE, URINE AUTO 1+ (NEGATIVE); MUCUS, URINE SMALL (NEGATIVE); NITRITE, URINE AUTO NEGATIVE (NEGATIVE); PROTEIN, URINE AUTO NEGATIVE (NEGATIVE); RBC, URINE AUTO 1 /HPF (0-3); SPECIFIC GRAVITY URINE AUTO 1.018 (1.002-1.035); SQUAMOUS EPITHELIAL CELL UR AU 1 /HPF (0-6); UROBILINOGEN, URINE AUTO 0.2 mg/dL (0.0-2.0); WBC, URINE AUTO 27 /HPF (0-3)
== END ==
LOC: M SMT 17:17
PROVIDERS: ATTEND Nurse Practitioner Family
DX: R39.9 Unspecified symptoms and signs involving the genitourinary system (principal)

== ENCOUNTER → 2025-08-06 | Outpatient (REF) | payer OTHER ==
[2025-08-06 17:18] LABS: BASO # 0.0 10^3/uL (0.0-0.2); BASO % 0.3 % (0.0-1.0); EOS # 0.0 10^3/uL (0.0-0.5); EOS % 0.6 % (0.0-3.0); LYMPH # 1.5 10^3/uL (1.5-5.0); LYMPH % 21.1 % (24.0-44.0); MONO # 0.5 10^3/uL (0.0-0.8); MONO % 6.9 % (2.0-8.0); NEUTROPHILS # 4.9 10^3/uL (1.5-8.5); NEUTROPHILS % 71.0 % (36.0-66.0); PLATELET COUNT, AUTOMATED 358 10^3/uL (150-450)
[2025-08-06 17:24] LABS: ALT/SGPT 21 U/L (7.0-40); AST/SGOT 18 U/L (<34); CALCIUM LEVEL 8.8 MG/DL (8.5-10.1); CARBON DIOXIDE LEVEL 27 MMOL/L (20-31); CHLORIDE LEVEL 104 MMOL/L (98-107); CREATININE FOR GFR 0.60 MG/DL (0.55-1.30); GLOMERULAR FILTRATION RATE > 90.0 (>60); IRON (FE) 51 UG/DL (50-170); PERCENT SATURATION 12.8 % (13.2-45.0); POTASSIUM SERUM 3.9 MMOL/L (3.5-5.1); SODIUM LEVEL 139 MMOL/L (136-145)
[2025-08-06 17:28] LABS: TOTAL 25(OH) VITAMIN D 23.4 NG/ML (20.0-100.0)
[2025-08-06 17:30] LABS: FREE T4 1.09 NG/DL (0.89-1.76); VITAMIN B12 LEVEL 340 PG/ML (211-911)
== END ==
LOC: M SFHCCAPE 09:27
PROVIDERS: ATTEND Physician Assistant Medical
DX: F41.1 Generalized anxiety disorder (principal); D50.9 Iron deficiency anemia, unspecified; E55.9 Vitamin D deficiency, unspecified; R53.83 Other fatigue; K21.9 Gastro-esophageal reflux disease without esophagitis